=== PATIENT | female | born 1965 | race Caucasian/White ===

== ENCOUNTER → 2017-04-05 | Outpatient (CLI) | payer OTHER ==
--- NOTE | 2017-04-05 10:38 | CT ---
EXAMINATION TYPE: CT sinus wo con DATE OF EXAM: 04/05/2017 COMPARISON: NONE HISTORY: 51-year-old female Chronic sinusitis CT DLP: 635 mGycm Automated exposure control for dose reduction was used. TECHNIQUE: Noncontrast axial views of the paranasal sinuses were obtained. Coronal reconstructions pe rformed. FINDINGS: The frontal, ethmoid, maxillary and sphenoid sinuses are clear and well pneumatized. There is no mucosal thickening or air-fluid level. Reactive anthony- osteogenesis is not seen. There is no destruction of the osseous giles of the paranasal sinuses. The osteomeatal complexes are patent. Minimal leftward nasal septal deviation. There is some asymmetry to the left sylvian fissure and gyration within the left frontal lobe, refer to axial image 47 and 72 and some asymmetric enlargement to the posterior aspect of the left lateral ventricle. Questionable clinical significance. MRI brain can further evaluate if any neurologic sympt oms. The orbits are normal in appearance. Visualized mastoid air cells and middle ear cavities are well pneumatized. Reformatted images confirm above findings. IMPRESSION: 1. No significant paranasal sinus disease. 2. Minimal leftward nasal septal deviation. 3. Some left-sided asymmetry to the intracranial structures of questionable clinical significance in the absence of any neurologic symptoms. MRI brain with the addition of a coronal T1 SPGR sequence can be performed if indicated.
== END | disposition home or self-care (01) ==
LOC: RADCTMAIN 08:12
PROVIDERS: ATTEND Otolaryngology
DX: J32.9 Chronic sinusitis, unspecified (principal); J34.2 Deviated nasal septum
CPT/HCPCS: 70486